=== PATIENT | male | born 1985 | race American Indian/Alaskan Native ===

== ENCOUNTER 2019-03-03 18:34 | Emergency (ER) | payer OTHER ==
--- NOTE | 2019-03-03 19:06 | Emergency Department Report ---
Chief Complaint: Skin Rash Stated Complaint: RASH Time Seen by Provider: 03/03/19 19:02 - HPI History of Present Illness: Pt states that a rash that began yesterday 5 days ago was at a baby shower with many kids itchy noticed some clear drainage no PMHx no meds on a daily basis pt has a temp of 102.7, given tylenol rash consistent with chicken pox advised pt to use calamine lotion, oatmeal bath, tylenol or ibuprofen for a fever, benadryl for itching discussed with pt to please see PCP in the next 2-3 days discussed with pt that rash needs to be reevaluated for resolution Advised pt to please return immediately to the ED for any new or worsening symptoms or if sx do not improve discussed to please drink plenty of fluids MSE screening note: Focused history and physical exam performed. ED Disposition for MSE Clinical Impression: Chickenpox Qualifiers: Varicella complications: without complication Qualified Code(s): B01.9 - Dale icella without complication Disposition: - TO HOME OR SELFCARE Is pt being admited?: No Does the pt Need Aspirin: No Condition: Stable Instructions: Varicella (ED) Additional Instructions: Please follow up with a primary care doctor in the next 2-3 days. Please use calamine lotion, oatmeal bath, tylenol or ibuprofen for temperature of 100.4 or greater, and benadryl for itching. Return to the emergency room for any new or worsening symptoms. Referrals: ISAURA REILLY MD [Primary Care Provider] - 2-3 Days Time of Disposition: 19:04 Print Language: GIBRALTARIAN
[2019-03-03] MEDS ORDERED: TYLENOL PO ONE (19:11)
[2019-03-03] MEDS ORDERED: TYLENOL ONE (19:15)
[2019-03-04 19:34] VITALS: BP 138/89
== END 2019-03-03 19:17 | disposition home or self-care (01) ==
LOC: ED 18:34
DX: B01.9 Varicella without complication (principal)
CPT/HCPCS: 99282

== ENCOUNTER 2019-03-06 17:33 | Emergency (ER) | payer OTHER ==
--- NOTE | 2019-03-06 17:41 | Emergency Department Report ---
Blank Doc - Documentation Documentation: This is a 33-year-old male that presents with generalized rash with n/v. Was told that it may be chicken pox. Denies any abdominal pain. This initial assessment/diagnostic orders/clinical plan/treatment(s) is/are subject to change based on patient's health status, clinical progression and re- assessment by fellow clinical providers in the ED. Further treatment and workup at subsequent clinical providers discretion. Patient/guardians urged not to elope from the ED as their condition may be serious if not clinically assessed and managed. Initial orders include: 1- Patient sent to [facility] for further evaluation and treatment 2- labs
[2019-03-06 17:55] LABS: Mean Corpuscular HGB Conc 36 % (32-34); Mean Corpuscular Volume 85 fl (84-94); Platelet Count 171 K/mm3 (140-440); Red Blood Count 5.39 M/mm3 (3.65-5.03); Red Cell Distribution Width 14.2 % (13.2-15.2)
[2019-03-06 18:05] LABS: Hematocrit 45.6 % (35.5-45.6); Hemoglobin 16.5 gm/dl (11.8-15.2)
[2019-03-06 18:18] LABS: Alanine Aminotransferase 44 units/L (7-56); Albumin 4.2 g/dL (3.9-5); BUN/Creatinine Ratio 11; Blood Urea Nitrogen 8 mg/dL (9-20); Calcium 8.9 mg/dL (8.4-10.2); Hemolysis Index 17
[2019-03-06 18:22] LABS: Bilirubin,Direct < 0.2 mg/dL (0-0.2)
[2019-03-06 18:55] LABS: Basophils % (Manual) 0 % (0.0-1.8); Eosinophils % (Manual) 0 % (0.0-4.3); Total Cells Counted 100
[2019-03-06 18:56] LABS: Anisocytosis 1+; Platelet Estimate Consistent w Auto
[2019-03-06] MEDS ORDERED: ZOFRAN IV ONE (20:38)
[2019-03-06] MEDS ORDERED: PEPCID IV ONE (20:38)
[2019-03-06] MEDS ORDERED: TORADOL IV ONE (20:38)
[2019-03-06] MEDS ORDERED: NACL 0.9% 1000 ML 1,000 ML IV ONE (20:38)
--- NOTE | 2019-03-06 20:42 | Emergency Department Report ---
ED General Adult HPI - General Chief complaint: Nausea/Vomiting/Diarrhea Stated complaint: CHICKEN POX Time Seen by Provider: 03/06/19 17:41 Source: patient Mode of arrival: Ambulatory Limitations: No Limitations - History of Present Illness Initial comments: Patient is a 33-year-old black male who is presenting with a rash or chills and nausea vomiting for the past 3 days. Patient states he noticed the rash on his upper extremities initially but it has spread to his entire body including his face arms and torso back and legs. Patient denies any mouth problems as involvement. Patient states that the rash is itchy. Patient states they start as small vesicles and then crust over. Patient also states he has had some nausea and vomiting for the last day and has been unable to keep anything down. Patient states he has just mild soreness in his abdomen from vomiting. Patient denies any diarrhea next stiffness or syncope. Severity scale (0 -10): 0 - Related Data Previous Rx's Medication Instructions Recorded Last Taken Type Acyclovir [Zovirax Tab] 800 mg PO QID 5 Days tab 03/06/19 Unknown Rx Allergies Allergy/AdvReac Type Severity Reaction Status Date / Time No Known Allergies Allergy Verified 03/06/19 17:38 ED Review of Systems ROS: Stated complaint: CHICKEN POX Other details as noted in HPI Comment: All other systems reviewed and negative ED Past Medical Hx - Past Medical History Previous Medical History?: No - Surgical History Past Surgical History?: No - Social History Smoking Status: Never Smoker Substance Use Type: Alcohol, Marijuana - Medications Home Medications: Home Medications Medication Instructions Recorded Confirmed Last Taken Type Acyclovir [Zovirax Tab] 800 mg PO QID 5 Days tab 03/06/19 Unknown Rx ED Physical Exam - General Limitations: No Limitations General appearance: alert, in no apparent distress - Head Head exam: Present: atraumatic, normocephalic - Eye Eye exam: Present: normal appearance, PERRL, EOMI - ENT ENT exam: Present: mucous membranes moist - Neck Neck exam: Present: normal inspection - Respiratory Respiratory exam: Present: normal lung sounds bilaterally. Absent: respiratory distress, wheezes, rales, rhonchi - Cardiovascular Cardiovascular Exam: Present: regular rate, normal rhythm. Absent: systolic murmur, diastolic murmur, rubs, gallop - GI/Abdominal GI/Abdominal exam: Present: soft, normal bowel sounds. Absent: distended, tenderness, guarding, rebound, rigid - Rectal Rectal exam: Present: deferred - Extremities Exam Extremities exam: Present: normal inspection - Back Exam Back exam: Present: normal inspection - Neurological Exam Neurological exam: Present: alert, oriented X3 - Psychiatric Psychiatric exam: Present: normal affect, normal mood - Skin Skin exam: Present: warm, dry, intact, normal color, rash - Expanded Skin Exam Expanded Distribution of rash: generalized Description of rash: Present: vesicular (with some very mild erythema surrounding vesicles. They're in various stages of healing. There is some that have hyperpigmented crusting of lesions.) ED Course Vital Signs 03/06/19 03/06/19 17:39 20:42 Temperature 98.6 F 98.9 F Pulse Rate 68 55 L Respiratory 16 18 Rate Blood Pressure 132/87 Blood Pressure 147/86 [Left] O2 Sat by Pulse 99 100 Oximetry ED Medical Decision Making - Lab Data Result diagrams: 03/06/19 17:45 03/06/19 17:45 - Medical Decision Making Patient is a 33-year-old -[place] male who is presenting with nausea vomiting. Patient was seen here 3 days ago and thought that the patient had chickenpox. The patient's presentation today he also appears to be chickenpox r elated. Patient was hydrated and given antiemetics. Patient has had no further nausea vomiting. Patient is feeling improved. Patient be discharged home with meds for symptomatic relief. Critical care attestation.: If time is entered above; I have spent that time in minutes in the direct care of this critically ill patient, excluding procedure time. ED Disposition Clinical Impression: Chickenpox Qualifiers: Varicella complications: unspecified complication Qualified Code(s): B01.89 - Other varicella complications Gastritis Qualifiers: Gastritis type: unspecified gastritis Chronicity: acute Gastritis bleeding: without bleeding Qualified Code(s): K29.00 - Acute gastritis without bleeding Disposition: -01 TO HOME OR SELFCARE Is pt being admited?: No Does the pt Need Aspirin: No Condition: Stable Instructions: Varicella (ED), Acute Nausea and Vomiting (ED) Referrals: ISAURA REILLY MD [Primary Care Provider] - 3-5 Days Time of Disposition: 22:07
[2019-03-06 20:44] VITALS: BP 147/86
== END 2019-03-06 22:30 | disposition home or self-care (01) ==
LOC: ED 17:33
DX: B01.89 Other varicella complications (principal); K29.00 Acute gastritis without bleeding
CPT/HCPCS: 36415; 80048; 80076; 83690; 85007; 85025; 96361; 96374; 96375; 99283; J1885; J2405; J7030